=== PATIENT | female | born 1965 | race African-American/Black ===

== ENCOUNTER → 2018-01-07 | Day surgery (SDC) | payer MEDICAID ==
[~2018-01-07] VITALS: Ht 154.9 cm; Wt 51.4 kg
[~2018-01-07] MED LIST: FentaNYL CITRATE-PF 100 MCG/2 ML VIAL ONE; HYDR25TA PO; LISI-662 PO; MIDAZOLAM HCL 5 MG/ML VIAL ONE; SODIUM CHLORIDE 0.9% 1,000 ML IV ONE
== END | disposition home or self-care (01) ==
LOC: SURGERY 07:41
PROVIDERS: ATTEND Internal Medicine Gastroenterology
DX: D50.9 Iron deficiency anemia, unspecified (principal); K21.9 Gastro-esophageal reflux disease without esophagitis; I10 Essential (primary) hypertension; Z53.8 Procedure and treatment not carried out for other reasons; Z80.0 Family history of malignant neoplasm of digestive organs; Z98.890 Other specified postprocedural states; Z87.891 Personal history of nicotine dependence; Z79.899 Other long term (current) drug therapy
CPT/HCPCS: 36415; 84703; J7030; J2250; J3010